=== PATIENT | male | born 1970 | race Caucasian/White ===

== ENCOUNTER 2017-01-25 07:39 | Emergency (ER) | payer OTHER ==
[~2017-01-25] VITALS: Ht 188 cm; Wt 167.1 kg
[~2017-01-25 07:39] MED LIST: ASPI-650 PO; FERR325T20 PO; METH10TA6 PO; METO25TA35 PO; MULT-750 PO
[2017-01-25 07:42] VITALS: BP 147/86
[2017-01-25] MEDS ORDERED: KETOROLAC 30 MG/1 ML IM ONE (08:30)
[2017-01-25] MEDS ORDERED: KETOROLAC 30 MG/1 ML ONE (08:35)
== END 2017-01-25 09:12 | disposition home or self-care (01) ==
LOC: ED 08:12
DX: S60.221A Contusion of right hand, initial encounter (principal); S46.911A Strain of unspecified muscle, fascia and tendon at shoulder and upper arm level, right arm, initial encounter; S50.01XA Contusion of right elbow, initial encounter; W01.0XXA Fall on same level from slipping, tripping and stumbling without subsequent striking against object, initial encounter; Y93.89 Activity, other specified; Y99.8 Other external cause status; Y92.89 Other specified places as the place of occurrence of the external cause
CPT/HCPCS: 73060; 73080; 73130; 96372; 99284; J1885

== ENCOUNTER 2017-02-17 08:17 | Emergency (ER) | payer OTHER ==
[~2017-02-17] VITALS: Ht 188 cm; Wt 166.0 kg
[2017-02-17 08:20] VITALS: BP 142/80
[2017-02-17] MEDS ORDERED: KETOROLAC 30 MG/1 ML ONE (08:59)
[2017-02-17] MEDS ORDERED: HYDROcodone/APAP 5/325 TABLET ONE (08:59)
[2017-02-17] MEDS ORDERED: HYDROcodone/APAP 5/325 TABLET PO ONE (09:00)
[2017-02-17] MEDS ORDERED: KETOROLAC 30 MG/1 ML IM ONE (09:00)
== END 2017-02-17 10:36 | disposition home or self-care (01) ==
LOC: ED 08:38
DX: S16.1XXA Strain of muscle, fascia and tendon at neck level, initial encounter (principal); W19.XXXA Unspecified fall, initial encounter; Y93.39 Activity, other involving climbing, rappelling and jumping off; Y92.89 Other specified places as the place of occurrence of the external cause; Y99.9 Unspecified external cause status
CPT/HCPCS: 72125; 96372; 99284; J1885

== ENCOUNTER 2017-03-25 09:15 | Emergency (ER) | payer SELFPAY | END 2017-03-25 11:39 | LOC: ED 09:15 | DX: S00.83XA Contusion of other part of head, initial encounter (principal); Z87.891 Personal history of nicotine dependence; Z88.6 Allergy status to analgesic agent; W22.8XXA Striking against or struck by other objects, initial encounter; Y93.89 Activity, other specified; Y92.89 Other specified places as the place of occurrence of the external cause; Y99.9 Unspecified external cause status | CPT/HCPCS: 70100; 99284 ==

== ENCOUNTER 2017-05-16 09:04 | Emergency (ER) | payer SELFPAY ==
[~2017-05-16] VITALS: Ht 188 cm; Wt 162.9 kg
[2017-05-16] MEDS ORDERED: DIPHENHYDRAMINE 50 MG/ML, 1ML IVPush ONE (10:30)
[2017-05-16] MEDS ORDERED: SODIUM CHLORIDE 0.9% 1,000ML IVBOLUS ONE (10:30)
[2017-05-16] MEDS ORDERED: METOCLOPRAMIDE 5 MG/ML, 2ML IVPush ONE (10:30)
[2017-05-16] MEDS ORDERED: SODIUM CHLORIDE FLUSH 10ML SYR IVF ONE ×2 (10:30)
[2017-05-16] MEDS ORDERED: METOCLOPRAMIDE 5 MG/ML, 2ML ONE (10:32)
[2017-05-16] MEDS ORDERED: DIPHENHYDRAMINE 50 MG/ML, 1ML ONE (10:32)
[2017-05-16] MEDS ORDERED: KETOROLAC 30 MG/1 ML IVPush ONE (11:00)
[2017-05-16 11:10] VITALS: BP 130/80
== END 2017-05-16 11:13 | disposition home or self-care (01) ==
LOC: ED 11:01
DX: S09.90XA Unspecified injury of head, initial encounter (principal); Z90.49 Acquired absence of other specified parts of digestive tract; W19.XXXA Unspecified fall, initial encounter; Y93.89 Activity, other specified; Y92.098 Other place in other non-institutional residence as the place of occurrence of the external cause; Y99.8 Other external cause status
CPT/HCPCS: 70450; 96374; 96375; 99284; J1200; J2765; J7030

== ENCOUNTER 2017-07-26 07:40 | Emergency (ER) | payer SELFPAY ==
[~2017-07-26] VITALS: Ht 188 cm; Wt 163.4 kg
[~2017-07-26 07:40] MED LIST changes: +FERR325T18 PO; -FERR325T20 PO
[2017-07-26 07:41] VITALS: BP 148/85
== END 2017-07-26 09:37 | disposition home or self-care (01) ==
LOC: ED 07:57
DX: J00 Acute nasopharyngitis [common cold] (principal); M94.0 Chondrocostal junction syndrome [Tietze]; Z90.49 Acquired absence of other specified parts of digestive tract; Z98.84 Bariatric surgery status
CPT/HCPCS: 71020; 99284

== ENCOUNTER 2017-08-02 06:39 | Emergency (ER) | payer OTHER ==
[~2017-08-02] VITALS: Ht 188 cm; Wt 165.0 kg
[2017-08-02] MEDS ORDERED: IBUPROFEN 200 MG TABLET ONE (07:19)
[2017-08-02] MEDS ORDERED: IBUPROFEN 200 MG TABLET PO ONE (07:30)
[2017-08-02 07:59] VITALS: BP 142/78
== END 2017-08-02 08:06 | disposition home or self-care (01) ==
LOC: ED 08:00
DX: S63.522A Sprain of radiocarpal joint of left wrist, initial encounter (principal); X50.1XXA Overexertion from prolonged static or awkward postures, initial encounter; Y93.89 Activity, other specified; Y92.009 Unspecified place in unspecified non-institutional (private) residence as the place of occurrence of the external cause; Y99.8 Other external cause status
CPT/HCPCS: 29125

== ENCOUNTER 2017-08-08 17:22 | Emergency (ER) | payer OTHER ==
[~2017-08-08] VITALS: Ht 188 cm; Wt 166.6 kg
[2017-08-08 17:25] VITALS: BP 164/86
[2017-08-08] MEDS ORDERED: ALBUTEROL/IPRATROPIUM 2.5MG/0.5MG, 3 ML NPPB ONE (17:30)
== END 2017-08-08 18:43 | disposition home or self-care (01) ==
LOC: ED 17:53
DX: J98.01 Acute bronchospasm (principal); J45.909 Unspecified asthma, uncomplicated; Z90.49 Acquired absence of other specified parts of digestive tract; Z98.84 Bariatric surgery status
CPT/HCPCS: 71020; 94640; 99284; J7512; J7620

== ENCOUNTER 2017-12-13 06:05 | Emergency (ER) | payer SELFPAY ==
[~2017-12-13] VITALS: Ht 185.4 cm; Wt 129.0 kg
[2017-12-13 07:18] VITALS: BP 108/52
== END 2017-12-13 07:55 | disposition home or self-care (01) ==
LOC: ED 06:30
DX: S43.401A Unspecified sprain of right shoulder joint, initial encounter (principal); S50.01XA Contusion of right elbow, initial encounter; W01.0XXA Fall on same level from slipping, tripping and stumbling without subsequent striking against object, initial encounter; Y93.01 Activity, walking, marching and hiking; Y92.098 Other place in other non-institutional residence as the place of occurrence of the external cause; Y99.8 Other external cause status
CPT/HCPCS: 99284

== ENCOUNTER 2018-02-24 11:06 | Inpatient (IN) | payer BC, OTHER ==
[~2018-02-24] VITALS: Ht 188 cm; Wt 167.2 kg
[2018-02-24 11:34] LABS: BASOPHILS # (AUTO) 0.02 x10^3/uL (0-0.1); BASOPHILS % (AUTO) 0 % (0-1); EOSINOPHILS # (AUTO) 0.17 x10^3/uL (0-0.4); EOSINOPHILS % (AUTO) 3 % (1-7); LYMPHOCYTES # (AUTO) 2.11 x10^3/uL (1-3.4); LYMPHOCYTES % (AUTO) 39 % (22-44); MD NO; MEAN CORPUSCULAR HEMOGLOBIN 29.6 pg (27.5-34.5); MEAN CORPUSCULAR HGB CONC 34.1 g/dL (33.2-36.2); MEAN CORPUSCULAR VOLUME 86.6 fL (81-97); MEAN PLATELET VOLUME 7.8 fL (7.4-10.4); MONOCYTES % (AUTO) 11 % (2-9); NEUTROPHILS # (AUTO) 2.54 x10^3/uL (1.8-6.8); NEUTROPHILS % (AUTO) 47 % (42-75); PLATELET COUNT 190 x10^3/uL (130-400); RED BLOOD COUNT 5.34 x10^6/uL (4.38-5.82); RED CELL DISTRIBUTION WIDTH 13.7 % (9.4-14.8)
[2018-02-24 11:42] LABS: INTERNATIONAL NORMALIZED RATIO 1.04 (0.93-1.1); PROTHROMBIN TIME 10.8 Seconds (9.6-11.5)
[2018-02-24 11:49] LABS: ALANINE AMINOTRANSFERASE 30 U/L (12-78); ALBUMIN 3.3 g/dL (3.4-5.0); ANION GAP 8 mmol/L (5-15); CALCIUM 8.7 mg/dL (8.5-10.1); CHLORIDE 110 mmol/L (98-107); CREATININE 1.17 mg/dL (0.7-1.3)
[2018-02-24 11:53] LABS: ALKALINE PHOSPHATASE 143 U/L (45-117); TOTAL PROTEIN 7.7 g/dL (6.4-8.2); TROPONIN I < 0.015 ng/mL (0.000-0.045)
[2018-02-24 15:52] VITALS: BP 123/84
[2018-02-24] MEDS ORDERED: ONDANSETRON 2MG/ML, 2ML IVPush PRN (17:00)
[2018-02-24] MEDS ORDERED: ONDANSETRON ODT 4 MG PO PRN (17:00)
[2018-02-24] MEDS ORDERED: LABETALOL 5MG/ML, 20ML IVPush PRN (17:00)
[2018-02-24] MEDS: SODIUM CHLORIDE 0.9% 1,000 ML IV SCH (17:29)
[2018-02-24 17:36] LABS: TROPONIN I < 0.015 ng/mL (0.000-0.045)
[2018-02-24 17:38] LABS: FREE T4 (FREE THYROXINE) 1.85 ng/dL (0.76-1.46)
[2018-02-24] MEDS ORDERED: ENOXAPARIN 40 MG/0.4 ML SQ SCH (18:00)
[2018-02-24 20:51] VITALS: BP 99/64
[2018-02-25] MEDS: SODIUM CHLORIDE 0.9% 1,000 ML IV SCH ×2 (02:58→12:58)
[2018-02-25 02:59] VITALS: BP 111/73
[2018-02-25 04:17] LABS: ALBUMIN 2.8 g/dL (3.4-5.0); ANION GAP 6 mmol/L (5-15); CALCIUM 8.3 mg/dL (8.5-10.1); CHLORIDE 114 mmol/L (98-107)
[2018-02-25 04:18] LABS: TROPONIN I < 0.015 ng/mL (0.000-0.045)
[2018-02-25 04:22] LABS: ALANINE AMINOTRANSFERASE 27 U/L (12-78); BILIRUBIN,TOTAL 2.1 mg/dL (0.2-1.0); CREATININE 1.04 mg/dL (0.7-1.3); TOTAL PROTEIN 6.5 g/dL (6.4-8.2)
[2018-02-25 04:24] LABS: BASOPHILS # (AUTO) 0.01 x10^3/uL (0-0.1); BASOPHILS % (AUTO) 0 % (0-1); EOSINOPHILS # (AUTO) 0.14 x10^3/uL (0-0.4); EOSINOPHILS % (AUTO) 3 % (1-7); LYMPHOCYTES # (AUTO) 1.71 x10^3/uL (1-3.4); LYMPHOCYTES % (AUTO) 34 % (22-44); MD NO; MEAN CORPUSCULAR HEMOGLOBIN 28.6 pg (27.5-34.5); MEAN CORPUSCULAR HGB CONC 33.5 g/dL (33.2-36.2); MEAN CORPUSCULAR VOLUME 85.6 fL (81-97); MEAN PLATELET VOLUME 8.4 fL (7.4-10.4); MONOCYTES # (AUTO) 0.44 x10^3/uL (0.2-0.8); MONOCYTES % (AUTO) 9 % (2-9); NEUTROPHILS # (AUTO) 2.81 x10^3/uL (1.8-6.8); NEUTROPHILS % (AUTO) 55 % (42-75); PLATELET COUNT 169 x10^3/uL (130-400); RED BLOOD COUNT 5.02 x10^6/uL (4.38-5.82); RED CELL DISTRIBUTION WIDTH 14.1 % (9.4-14.8)
[2018-02-25 04:28] LABS: ALKALINE PHOSPHATASE 113 U/L (45-117)
[2018-02-25 04:29] LABS: THYROID STIMULATING HORMONE < 0.005 mIU/L (0.358-3.740)
[2018-02-25] MEDS ORDERED: ASPIRIN 81 MG TABLET EC PO SCH (06:00)
[2018-02-25 07:15] VITALS: BP 94/63
[2018-02-25] MEDS ORDERED: CEFTRIAXONE PMX 2GM/50ML 50 ML IV SCH (08:30)
[2018-02-25] MEDS ORDERED: REGADENOSON 0.4 MG/5 ML SYRINGE ONE (08:40)
[2018-02-25] MEDS ORDERED: DOXYCYCLINE 100MG TABLET PO SCH (09:00)
[2018-02-25 13:55] VITALS: BP 118/80
[2018-02-25] MEDS ORDERED: ASPI-621 PO (16:50)
[2018-02-25] MEDS ORDERED: METH5TAB6 PO (16:56)
== END 2018-02-25 18:16 | disposition home or self-care (01) | DRG 308 ==
LOC: ED 13:03 → EDIP 13:04 → ED 13:14 → 5SO 15:43
PROVIDERS: ADMIT Hospitalist; ATTEND Hospitalist
DX: I48.91 Unspecified atrial fibrillation (principal); E43 Unspecified severe protein-calorie malnutrition; D68.69 Other thrombophilia; E66.01 Morbid (severe) obesity due to excess calories; Z68.42 Body mass index [BMI] 45.0-49.9, adult; I47.1 Supraventricular tachycardia; E03.9 Hypothyroidism, unspecified; J45.909 Unspecified asthma, uncomplicated; Z80.9 Family history of malignant neoplasm, unspecified; Z87.891 Personal history of nicotine dependence; Z98.84 Bariatric surgery status; Z90.49 Acquired absence of other specified parts of digestive tract
CPT/HCPCS: 36415; 71045; 78452; 80053; 83735; 83880; 84100; 84439; 84443; 84484; 85025; 85610; 93005; 93017; 93306; 99285; J1650; J2785; A9502; C9898; J7030

== ENCOUNTER 2018-08-22 06:19 | Emergency (ER) | payer OTHER ==
[~2018-08-22] VITALS: Ht 188 cm; Wt 166.4 kg
[~2018-08-22 06:19] MED LIST changes: +ASPI-621 PO; +METH5TAB6 PO
[2018-08-22 06:25] VITALS: BP 147/85
[2018-08-22] MEDS ORDERED: IBUPROFEN 800 MG TABLET ONE (06:40)
[2018-08-22] MEDS ORDERED: IBUPROFEN 200 MG TABLET PO ONE (07:00)
== END 2018-08-22 08:14 | disposition home or self-care (01) ==
LOC: ED 07:50
DX: S40.012A Contusion of left shoulder, initial encounter (principal); W18.30XA Fall on same level, unspecified, initial encounter; Y93.89 Activity, other specified; Y92.009 Unspecified place in unspecified non-institutional (private) residence as the place of occurrence of the external cause; Y99.8 Other external cause status
CPT/HCPCS: 99284

== ENCOUNTER 2018-10-24 08:55 | Emergency (ER) | payer OTHER ==
[~2018-10-24] VITALS: Ht 188 cm; Wt 171.0 kg
[~2018-10-24 08:55] MED LIST changes: -ASPI-621 PO; +ASPI81TA45 PO
[2018-10-24 09:02] VITALS: BP 151/77
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
--- NOTE | 2018-10-24 09:52 | NUR ---
PT TO AND FROM CT. NADN.
--- NOTE | 2018-10-24 10:02 | NUR ---
PT CHART REVIEWED AND PLACED FOR RECHECK.
== END 2018-10-24 10:40 | disposition home or self-care (01) ==
LOC: ED 09:31
DX: S00.33XA Contusion of nose, initial encounter (principal); S00.531A Contusion of lip, initial encounter; I48.91 Unspecified atrial fibrillation; J45.909 Unspecified asthma, uncomplicated; W22.8XXA Striking against or struck by other objects, initial encounter; Y93.89 Activity, other specified; Y92.89 Other specified places as the place of occurrence of the external cause; Y99.8 Other external cause status
CPT/HCPCS: 70486; 99284

== ENCOUNTER 2018-12-08 21:22 | Emergency (ER) | payer OTHER ==
[~2018-12-08] VITALS: Ht 188 cm; Wt 168.2 kg
[2018-12-08 21:23] VITALS: BP 122/90
--- NOTE | 2018-12-08 21:42 | NUR ---
PT HERE FOR RIGHT HIP PAIN X1 DAY. PT REPORTS HE FELL ON GORUND AND NOW HAS LOWER BACK PAIN. PT REPORTS NO ISSUE WALKIGN BUT FEELS LIKE PAIN IS SCIATICA. PT HAS GOOD CAP REFILL ON LEG AND CMS INTACT. PT ABLE TO DO ROM WITH PAIN.
[2018-12-08] MEDS ORDERED: DIAZEPAM 5 MG TABLET PO ONE (22:00)
[2018-12-08] MEDS ORDERED: KETOROLAC 30 MG/1 ML IM ONE (22:00)
[2018-12-08] MEDS ORDERED: KETOROLAC 30 MG/1 ML ONE (22:08)
[2018-12-08] MEDS ORDERED: DIAZEPAM 5 MG TABLET ONE (22:08)
[2018-12-08] MEDS ORDERED: HYDROcodone/APAP 5/325 TABLET ONE (23:04)
--- NOTE | 2018-12-08 23:27 | NUR ---
Patient/Caregiver given discharge instructions and they have confirmed that they understand the instructions. Patient ambulatory with steady gait.
[2018-12-08] MEDS ORDERED: HYDROcodone/APAP 5/325 TABLET PO PRN (23:30)
--- NOTE | 2018-12-08 23:51 | NUR ---
Pt having difficulty ambulating. Md to see at this time.
== END 2018-12-09 01:09 | disposition home or self-care (01) ==
LOC: ED 23:54
DX: S33.5XXA Sprain of ligaments of lumbar spine, initial encounter (principal); M54.16 Radiculopathy, lumbar region; E03.9 Hypothyroidism, unspecified; I48.91 Unspecified atrial fibrillation; J45.909 Unspecified asthma, uncomplicated; Z90.49 Acquired absence of other specified parts of digestive tract; W01.0XXA Fall on same level from slipping, tripping and stumbling without subsequent striking against object, initial encounter; Y93.89 Activity, other specified; Y92.009 Unspecified place in unspecified non-institutional (private) residence as the place of occurrence of the external cause; Y99.8 Other external cause status
CPT/HCPCS: 72110; 72131; 96372; 99284; J1885; 99283

== ENCOUNTER 2019-02-21 09:46 | Emergency (ER) | payer OTHER ==
[~2019-02-21] VITALS: Ht 188 cm; Wt 170.5 kg
[2019-02-21 09:51] VITALS: BP 147/91
--- NOTE | 2019-02-21 10:15 | NUR ---
Pt to 34 from lobby. Able to walk to bed from wheelchair. +CMS L foot, no ankle swelling noted compared to R ankle.
--- NOTE | 2019-02-21 11:28 | NUR ---
Air stirrup placed, pt performed good crutch demo, ambulated w/out difficulty. Patient given discharge instructions and they have confirmed that they understand the instructions. Patient ambulatory with steady gait.
== END 2019-02-21 11:32 | disposition home or self-care (01) ==
LOC: ED 10:57
DX: S93.492A Sprain of other ligament of left ankle, initial encounter (principal); E03.9 Hypothyroidism, unspecified; J45.909 Unspecified asthma, uncomplicated; I48.91 Unspecified atrial fibrillation; W01.0XXA Fall on same level from slipping, tripping and stumbling without subsequent striking against object, initial encounter; Y93.01 Activity, walking, marching and hiking; Y92.009 Unspecified place in unspecified non-institutional (private) residence as the place of occurrence of the external cause; Y99.8 Other external cause status
CPT/HCPCS: 99283

== ENCOUNTER 2019-05-20 11:27 | Emergency (ER) | payer OTHER ==
[~2019-05-20] VITALS: Ht 188 cm; Wt 169.7 kg
[2019-05-20 11:34] VITALS: BP 143/75
[2019-05-20] MEDS ORDERED: KETOROLAC 30 MG/1 ML ONE (11:48)
--- NOTE | 2019-05-20 11:55 | NUR ---
Patient ambulated to room; ao. Orders placed by provider, patient verbalized understanding. Educated patient on IM injections; reported prefers deltoid. Administered. Patient ambulated to xray.
[2019-05-20] MEDS ORDERED: KETOROLAC 30 MG/1 ML IM ONE (12:00)
== END 2019-05-20 12:23 | disposition home or self-care (01) ==
LOC: ED 12:16
DX: S50.02XA Contusion of left elbow, initial encounter (principal); J45.909 Unspecified asthma, uncomplicated; I48.91 Unspecified atrial fibrillation; Z90.49 Acquired absence of other specified parts of digestive tract; W19.XXXA Unspecified fall, initial encounter; Y93.89 Activity, other specified; Y92.89 Other specified places as the place of occurrence of the external cause; Y99.8 Other external cause status
CPT/HCPCS: 73080; 96372; 99283; J1885

== ENCOUNTER 2019-09-05 15:49 | Emergency (ER) | payer OTHER ==
[~2019-09-05] VITALS: Ht 188 cm; Wt 174.1 kg
[2019-09-05] MEDS ORDERED: ASPIRIN 81 MG TABLET CHEW ONE (16:44)
[2019-09-05 16:50] LABS: BASOPHILS # (AUTO) 0.01 x10^3/uL (0-0.1); BASOPHILS % (AUTO) 0 % (0-1); EOSINOPHILS # (AUTO) 0.17 x10^3/uL (0-0.4); EOSINOPHILS % (AUTO) 3 % (1-7); LYMPHOCYTES # (AUTO) 1.38 x10^3/uL (1-3.4); LYMPHOCYTES % (AUTO) 20 % (22-44); MD NO; MEAN CORPUSCULAR HEMOGLOBIN 29.3 pg (27.5-34.5); MEAN CORPUSCULAR HGB CONC 32.9 g/dL (33.2-36.2); MEAN CORPUSCULAR VOLUME 89.1 fL (81-97); MEAN PLATELET VOLUME 7.6 fL (7.4-10.4); MONOCYTES # (AUTO) 0.53 x10^3/uL (0.2-0.8); MONOCYTES % (AUTO) 8 % (2-9); NEUTROPHILS # (AUTO) 4.87 x10^3/uL (1.8-6.8); NEUTROPHILS % (AUTO) 70 % (42-75); PLATELET COUNT 211 x10^3/uL (130-400); RED BLOOD COUNT 4.73 x10^6/uL (4.38-5.82); RED CELL DISTRIBUTION WIDTH 14.4 % (9.4-14.8)
[2019-09-05 16:59] LABS: ALANINE AMINOTRANSFERASE 23 U/L (12-78); ALBUMIN 3.3 g/dL (3.4-5.0); ANION GAP 6 mmol/L (5-15); CHLORIDE 110 mmol/L (98-107); CREATININE 1.14 mg/dL (0.7-1.3)
[2019-09-05] MEDS ORDERED: ASPIRIN 81 MG TABLET CHEW PO ONE (17:00)
[2019-09-05] MEDS ORDERED: SODIUM CHLORIDE FLUSH 10ML SYR IVF ONE (17:00)
[2019-09-05 17:03] LABS: ALKALINE PHOSPHATASE 105 U/L (45-117); TROPONIN I < 0.015 ng/mL (0.000-0.045)
--- NOTE | 2019-09-05 18:50 | NUR ---
REPORT FROM ANGELICA GODDARD
[2019-09-05 19:11] LABS: TROPONIN I < 0.015 ng/mL (0.000-0.045)
--- NOTE | 2019-09-05 19:16 | NUR ---
ER MD MICHAELS IN TO UPDATE PT ON POC
[2019-09-05 19:17] VITALS: BP 106/73
== END 2019-09-05 19:34 | disposition home or self-care (01) ==
LOC: ED 17:20
DX: R07.89 Other chest pain (principal); I48.91 Unspecified atrial fibrillation; E03.9 Hypothyroidism, unspecified; Z90.49 Acquired absence of other specified parts of digestive tract; M19.90 Unspecified osteoarthritis, unspecified site
CPT/HCPCS: 36415; 71045; 80053; 84484; 85025; 93005; 99283

== ENCOUNTER 2019-10-05 09:07 | Emergency (ER) | payer SELFPAY ==
[~2019-10-05] VITALS: Ht 188 cm; Wt 173.0 kg
[2019-10-05 09:18] VITALS: BP 146/78
[2019-10-05] MEDS ORDERED: KETOROLAC 30 MG/1 ML ONE (09:47)
[2019-10-05] MEDS ORDERED: KETOROLAC 30 MG/1 ML IM ONE (10:00)
== END 2019-10-05 10:50 | disposition home or self-care (01) ==
LOC: ED 10:44
DX: S60.212A Contusion of left wrist, initial encounter (principal); W23.0XXA Caught, crushed, jammed, or pinched between moving objects, initial encounter; Y93.89 Activity, other specified; Y92.098 Other place in other non-institutional residence as the place of occurrence of the external cause; Y99.8 Other external cause status
CPT/HCPCS: 29260; 73110; 73130; 96372; 99283; J1885

== ENCOUNTER 2019-12-07 10:48 | Emergency (ER) | payer SELFPAY ==
[~2019-12-07] VITALS: Ht 188 cm; Wt 173.5 kg
[2019-12-07 11:05] VITALS: BP 166/79
--- NOTE | 2019-12-07 11:29 | NUR ---
PT HERE WITH C/O RIGHT SHOULDER PAIN AFTER LIFTING SOMETHING INTO CAR AND HITTING IT.
[2019-12-07] MEDS ORDERED: IBUPROFEN 200 MG TABLET ONE (11:55)
--- NOTE | 2019-12-07 11:56 | NUR ---
PT MEDICATED PER ORDER.
[2019-12-07] MEDS ORDERED: IBUPROFEN 800 MG TABLET PO ONE (12:00)
--- NOTE | 2019-12-07 12:21 | NUR ---
ALL RESULTS BACK AT THIS TIME, CHART UP FOR RECHECK.
--- NOTE | 2019-12-07 13:33 | NUR ---
Patient/Caregiver given discharge instructions and they have confirmed that they understand the instructions. Patient ambulatory with steady gait.
== END 2019-12-07 13:37 | disposition home or self-care (01) ==
LOC: ED 13:30
DX: S50.01XA Contusion of right elbow, initial encounter (principal); E03.9 Hypothyroidism, unspecified; I48.91 Unspecified atrial fibrillation; F17.200 Nicotine dependence, unspecified, uncomplicated; Z90.49 Acquired absence of other specified parts of digestive tract; Z98.84 Bariatric surgery status; V49.9XXA Car occupant (driver) (passenger) injured in unspecified traffic accident, initial encounter; Y93.89 Activity, other specified; Y92.098 Other place in other non-institutional residence as the place of occurrence of the external cause; Y99.8 Other external cause status
CPT/HCPCS: 29105; 99283

== ENCOUNTER 2019-12-24 13:18 | Emergency (ER) | payer SELFPAY ==
[~2019-12-24] VITALS: Ht 188 cm; Wt 173.0 kg
[2019-12-24 13:41] VITALS: BP 155/92
--- NOTE | 2019-12-24 15:11 | NUR ---
Patient/Caregiver given discharge instructions and they have confirmed that they understand the instructions. Patient ambulatory with steady gait. pt left with all personal belongings.
== END 2019-12-24 15:13 | disposition home or self-care (01) ==
LOC: ED 15:07
DX: J06.9 Acute upper respiratory infection, unspecified (principal); J45.909 Unspecified asthma, uncomplicated; I48.91 Unspecified atrial fibrillation; E03.9 Hypothyroidism, unspecified; Z90.49 Acquired absence of other specified parts of digestive tract
CPT/HCPCS: 71046; 99283

== ENCOUNTER 2020-05-01 08:58 | Emergency (ER) | payer SELFPAY ==
[~2020-05-01] VITALS: Ht 188 cm; Wt 170.9 kg
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
[2020-05-01] MEDS ORDERED: KETOROLAC 30 MG/1 ML IVPush ONE (10:00)
[2020-05-01] MEDS ORDERED: METHOCARBAMOL 1,000 MG in DEXTROSE 5% 100 ML IV ONE (10:00)
[2020-05-01] MEDS ORDERED: HYDROmorphone 2 MG/ML, 1ML IVPush PRN (10:00)
[2020-05-01] MEDS ORDERED: DIAZEPAM 5 MG TABLET PO ONE (10:00)
[2020-05-01] MEDS ORDERED: HYDROmorphone 1 MG/ML, 1ML INJ ONE (10:13)
[2020-05-01] MEDS ORDERED: DIAZEPAM 5 MG TABLET ONE (10:13)
[2020-05-01] MEDS ORDERED: KETOROLAC 30 MG/1 ML ONE (10:13)
--- NOTE | 2020-05-01 10:25 | NUR ---
PIV EST ON L AC WITH NO COMPLICATIONS. PT MEDICATED PER EMAR. PT REFUSED DILAUDID AND VALIUM D/T DRIVING HOME. EDMD NOTIFIED.
--- NOTE | 2020-05-01 10:26 | NUR ---
MEDICATION ORDERED FROM PHARMACY AT THIS TIME.
[2020-05-01 11:45] VITALS: BP 119/71
== END 2020-05-01 11:50 | disposition home or self-care (01) ==
LOC: ED 09:37
DX: M54.2 Cervicalgia (principal); I48.91 Unspecified atrial fibrillation; J45.909 Unspecified asthma, uncomplicated; E03.9 Hypothyroidism, unspecified; Z90.49 Acquired absence of other specified parts of digestive tract
CPT/HCPCS: 73000; 96374; 99283; J1885

== ENCOUNTER 2020-06-23 20:35 | Emergency (ER) | payer SELFPAY ==
[~2020-06-23] VITALS: Ht 188 cm; Wt 169.5 kg
[2020-06-23 20:39] VITALS: BP 145/74
--- NOTE | 2020-06-23 22:02 | NUR ---
Assist RN: pt alert and resting on gurfrida. NAD. Pt d/c'd to self care. Pt educated on follow-up, home care and S/Sx to return. Pt educated on OTC meds and RX's. Pt EMILY. Pt ambulated out of ER.
== END 2020-06-23 22:20 | disposition home or self-care (01) ==
LOC: ED 21:30
DX: S50.12XA Contusion of left forearm, initial encounter (principal); I49.3 Ventricular premature depolarization; X58.XXXA Exposure to other specified factors, initial encounter; Y93.89 Activity, other specified; Y92.098 Other place in other non-institutional residence as the place of occurrence of the external cause; Y99.8 Other external cause status
CPT/HCPCS: 93005; 99283

== ENCOUNTER 2020-09-12 04:59 | Emergency (ER) | payer SELFPAY ==
[~2020-09-12] VITALS: Ht 188 cm; Wt 170.6 kg
--- NOTE | 2020-09-12 05:30 | NUR ---
PT TO IMAGING.
[2020-09-12] MEDS ORDERED: ACETAMINOPHEN 500 MG TABLET PO ONE (06:00)
--- NOTE | 2020-09-12 06:06 | NUR ---
MD MCCARTHY AT BEDSIDE. PT SITTING UPRIGHT IN BED, INTERACTING APPROPRIATELY.
--- NOTE | 2020-09-12 06:24 | NUR ---
PT STATES HE STILL HAS PAIN, BUT DENIES WANTING ANY OTHER PAIN MEDS. ALL NEEDS MET AT THIS TIME.
[2020-09-12 07:13] VITALS: BP 112/74
== END 2020-09-12 07:15 | disposition home or self-care (01) ==
LOC: ED 05:41
DX: S16.1XXA Strain of muscle, fascia and tendon at neck level, initial encounter (principal); S09.90XA Unspecified injury of head, initial encounter; R11.2 Nausea with vomiting, unspecified; I48.91 Unspecified atrial fibrillation; J45.909 Unspecified asthma, uncomplicated; E03.9 Hypothyroidism, unspecified; W01.0XXA Fall on same level from slipping, tripping and stumbling without subsequent striking against object, initial encounter; Y93.89 Activity, other specified; Y92.89 Other specified places as the place of occurrence of the external cause; Y99.8 Other external cause status
CPT/HCPCS: 70450; 72125; 99285

== ENCOUNTER 2020-09-27 20:45 | Emergency (ER) | payer SELFPAY ==
[~2020-09-27] VITALS: Ht 188 cm; Wt 174.2 kg
--- NOTE | 2020-09-27 21:10 | NUR ---
cc of bronchitis. pt states he gets bronchitis yearly around this time. pt states yesterday he had some wheezing, gave himself a breathing treatment and felt better but symptoms returned this am so he decided to come to ED for evaluation. pt had low HR in triage, EKG done. pt states he normally has low Hr in 50's and has had a-fib in past. pt connected to balloon sander with Hr 55-63, no a-fib noted at this time.
--- NOTE | 2020-09-27 22:21 | NUR ---
repeat EKG, tech in room
[2020-09-27] MEDS ORDERED: AZITHROMYCIN 500 MG TABLET ONE (22:27)
[2020-09-27] MEDS ORDERED: AZITHROMYCIN 500 MG TABLET PO ONE (22:30)
[2020-09-27 22:36] VITALS: BP 134/87
== END 2020-09-27 22:43 | disposition home or self-care (01) ==
LOC: ED 21:15
DX: J18.9 Pneumonia, unspecified organism (principal); I48.91 Unspecified atrial fibrillation; Z90.49 Acquired absence of other specified parts of digestive tract
CPT/HCPCS: 71045; 93005; 99283; J7512

== ENCOUNTER 2020-10-19 09:44 | Emergency (ER) | payer SELFPAY ==
[~2020-10-19] VITALS: Ht 188 cm; Wt 170.6 kg
[2020-10-19 09:53] VITALS: BP 146/79
--- NOTE | 2020-10-19 10:09 | NUR ---
pt brought back from triage with chief complaint of left arm pain after slipping on ice this morning. CMS intact.
[2020-10-19] MEDS ORDERED: IBUPROFEN 800 MG TABLET ONE (10:19)
[2020-10-19] MEDS ORDERED: IBUPROFEN 800 MG TABLET PO ONE (10:30)
--- NOTE | 2020-10-19 10:57 | NUR ---
ALL RESULTS ARE BACK AT THIS TIME. CHART UP FOR RECHECK.
--- NOTE | 2020-10-19 12:02 | NUR ---
SLING PLACED BY [employer] SOFTWARE ENGINEER.
== END 2020-10-19 12:03 | disposition home or self-care (01) ==
LOC: ED 10:21
DX: S60.212A Contusion of left wrist, initial encounter (principal); S50.02XA Contusion of left elbow, initial encounter; M25.422 Effusion, left elbow; J45.909 Unspecified asthma, uncomplicated; E03.9 Hypothyroidism, unspecified; Z90.49 Acquired absence of other specified parts of digestive tract; W01.0XXA Fall on same level from slipping, tripping and stumbling without subsequent striking against object, initial encounter; Y93.01 Activity, walking, marching and hiking; Y92.488 Other paved roadways as the place of occurrence of the external cause; Y99.8 Other external cause status
CPT/HCPCS: 99284

== ENCOUNTER 2020-12-14 17:38 | Emergency (ER) | payer SELFPAY ==
[~2020-12-14] VITALS: Ht 188 cm; Wt 171.8 kg
[~2020-12-14 17:38] MED LIST changes: -ASPI-650 PO; +ASPI325T20 PO
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
[2020-12-14] MEDS ORDERED: DIPH,PERTUSS(ACELL),TET VAC/PF 0.5 ML IM-VACC ONE ×2 (18:23→18:30)
[2020-12-14] MEDS ORDERED: NEOSPORIN OINT. PKT 1 PACKET ONE (18:43)
--- NOTE | 2020-12-14 19:10 | NUR ---
PT RESTING ON GURNEY. BARRETT
[2020-12-14 19:26] VITALS: BP 136/75
== END 2020-12-14 20:31 | disposition home or self-care (01) ==
LOC: ED 20:25
DX: S70.02XA Contusion of left hip, initial encounter (principal); S80.812A Abrasion, left lower leg, initial encounter; J45.909 Unspecified asthma, uncomplicated; I48.91 Unspecified atrial fibrillation; E03.9 Hypothyroidism, unspecified; Z90.49 Acquired absence of other specified parts of digestive tract; W19.XXXA Unspecified fall, initial encounter; Y93.89 Activity, other specified; Y92.89 Other specified places as the place of occurrence of the external cause; Y99.8 Other external cause status
CPT/HCPCS: 90471; 90715; 99283

== ENCOUNTER 2021-01-29 09:32 | Emergency (ER) | payer SELFPAY ==
[~2021-01-29] VITALS: Ht 188 cm; Wt 169.7 kg
[~2021-01-29 09:32] MED LIST changes: +MULT-482 PO; -MULT-750 PO
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
[2021-01-29] MEDS ORDERED: IBUP-1223 PO (09:58)
[2021-01-29] MEDS ORDERED: METHOCARBAMOL 750 MG TABLET PO ONE (10:00)
[2021-01-29] MEDS ORDERED: KETOROLAC 30 MG/1 ML IM ONE (10:00)
--- NOTE | 2021-01-29 10:13 | NUR ---
FOAM CUSHION ORDERED FROM [facility]
[2021-01-29] MEDS ORDERED: ONDANSETRON ODT 4 MG ONE (10:17)
[2021-01-29] MEDS ORDERED: METHOCARBAMOL 750 MG TABLET ONE (10:17)
[2021-01-29] MEDS ORDERED: KETOROLAC 30 MG/1 ML ONE (10:17)
--- NOTE | 2021-01-29 10:27 | NUR ---
PT MEDICATED PER EMAR. AWAITING XR. SITTING ON SIDE OF [place]. CALL LIGHT W/IN REACH.
[2021-01-29] MEDS ORDERED: ONDANSETRON ODT 4 MG PO ONE (10:30)
--- NOTE | 2021-01-29 11:04 | NUR ---
SITTING ON GURNEY W/ LEGS OUTSTRETCHED. REPORTS DECREASED PAIN W/ SITTING STILL. CURRENTLY 0/10; INCREASES W/ MOVEMENT
[2021-01-29 11:05] VITALS: BP 118/78
== END 2021-01-29 11:28 | disposition home or self-care (01) ==
LOC: ED 09:42
DX: S30.0XXA Contusion of lower back and pelvis, initial encounter (principal); M54.5 Low back pain; M51.36 Other intervertebral disc degeneration, lumbar region; X58.XXXA Exposure to other specified factors, initial encounter; Y93.89 Activity, other specified; Y92.89 Other specified places as the place of occurrence of the external cause; Y99.8 Other external cause status
CPT/HCPCS: 72110; 72220; 96372; 99284; J1885; Q0162

== ENCOUNTER 2021-04-18 13:03 | Emergency (ER) | payer SELFPAY ==
[~2021-04-18] VITALS: Ht 188 cm; Wt 169.9 kg
[~2021-04-18 13:03] MED LIST changes: +IBUP-1223 PO
[2021-04-18 13:22] VITALS: BP 134/94
[2021-04-18] MEDS ORDERED: KETOROLAC 30 MG/1 ML ONE (13:51)
[2021-04-18] MEDS ORDERED: KETOROLAC 30 MG/1 ML IM ONE (14:00)
== END 2021-04-18 14:55 | disposition home or self-care (01) ==
LOC: ED 14:35
DX: G89.11 Acute pain due to trauma (principal); M25.512 Pain in left shoulder; M25.532 Pain in left wrist; W01.0XXA Fall on same level from slipping, tripping and stumbling without subsequent striking against object, initial encounter; Y93.89 Activity, other specified; Y92.009 Unspecified place in unspecified non-institutional (private) residence as the place of occurrence of the external cause; Y99.8 Other external cause status
CPT/HCPCS: 73030; 73080; 73110; 96372; 99284; J1885

== ENCOUNTER 2021-06-10 09:06 | Emergency (ER) | payer SELFPAY ==
[~2021-06-10] VITALS: Ht 188 cm; Wt 168.7 kg
[2021-06-10 11:09] VITALS: BP 124/74
== END 2021-06-10 11:10 | disposition home or self-care (01) ==
LOC: ED 10:30
DX: S53.441A Ulnar collateral ligament sprain of right elbow, initial encounter (principal); I48.91 Unspecified atrial fibrillation; J45.909 Unspecified asthma, uncomplicated; E03.9 Hypothyroidism, unspecified; X58.XXXA Exposure to other specified factors, initial encounter; Y93.89 Activity, other specified; Y92.89 Other specified places as the place of occurrence of the external cause; Y99.8 Other external cause status
CPT/HCPCS: 99283